=== PATIENT | female | born 1990 | race Caucasian/White ===

== ENCOUNTER 2016-08-20 23:36 | Emergency (ER) | payer OTHER ==
[~2016-08-20 23:36] MED LIST: IBUPROFEN600 MG PO; KEFLEX500 MG PO; NORCO 5-325 TA1 EACH PO; ZOFRAN4 MG PO
== END 2016-08-21 01:03 | disposition left against medical advice (07) ==
LOC: ER1 23:36
DX: Z53.21 Procedure and treatment not carried out due to patient leaving prior to being seen by health care provider (principal)
CPT/HCPCS: 93005

== ENCOUNTER → 2021-05-27 | Outpatient (CLI) | payer OTHER | LOC: OPSV2 09:07 | DX: Z01.812 Encounter for preprocedural laboratory examination (principal); N93.9 Abnormal uterine and vaginal bleeding, unspecified | CPT/HCPCS: 81001; 85025 ==

== ENCOUNTER → 2021-06-02 | Day surgery (SDC) | payer OTHER ==
[2021-05-27 10:16] LABS: RED BLOOD COUNT 4.32 M/UL (4.00-5.10)
[~2021-06-02] MED LIST changes: +COLACE 100MG C100 MG PO; +ESTRACE1 MG PO; +HYDROCODON-ACE1 EAC6 PO; +IBUPROFEN200 M1 PO
== END | disposition home or self-care (01) ==
LOC: OR 06:28
PROVIDERS: Obstetrics & Gynecology
DX: N87.9 Dysplasia of cervix uteri, unspecified (principal); N72 Inflammatory disease of cervix uteri; F17.200 Nicotine dependence, unspecified, uncomplicated; Z20.822 Contact with and (suspected) exposure to COVID-19; Z98.51 Tubal ligation status
CPT/HCPCS: 85025; J1100; J1170; J1580; J1885; J2001; J2250; J2405; J2704; J2710; J3010; J7120

== ENCOUNTER 2021-08-04 19:38 | Emergency (ER) | payer OTHER | END 2021-08-04 21:41 | disposition home or self-care (01) | LOC: ER1 19:38 | DX: S63.501A Unspecified sprain of right wrist, initial encounter (principal); S50.811A Abrasion of right forearm, initial encounter; F17.210 Nicotine dependence, cigarettes, uncomplicated; W10.8XXA Fall (on) (from) other stairs and steps, initial encounter; Y92.009 Unspecified place in unspecified non-institutional (private) residence as the place of occurrence of the external cause | CPT/HCPCS: 73090; 73110; 99283 ==

== ENCOUNTER 2021-12-08 21:29 | Emergency (ER) | payer OTHER | END 2021-12-09 04:11 | disposition home or self-care (01) | LOC: ER1 21:29 | DX: S61.211A Laceration without foreign body of left index finger without damage to nail, initial encounter (principal); Z88.0 Allergy status to penicillin; F17.210 Nicotine dependence, cigarettes, uncomplicated; W26.0XXA Contact with knife, initial encounter; Y92.009 Unspecified place in unspecified non-institutional (private) residence as the place of occurrence of the external cause | CPT/HCPCS: 12002; 90715; 99283; J1885 ==